=== PATIENT | male | born 1930 | race Caucasian/White ===

== ENCOUNTER 2017-11-21 11:37 | Emergency (ER) | payer MEDICARE, BC ==
--- NOTE | 2017-11-21 11:52 | UC ---
Laceration HPI - HPI Summary HPI Summary: 87 yo male presents s/p fall. He tells me that about 1 hour [employer] he was at the grocery store and a cart got away from him - he ran after it and fell forward landing on his hands and hitting his chin against the ground. He sustained abrasions to his b/l knees, wrists, and to chin. No LOC. He was ambulatory immediately after. He was able to drive himself here. Currently, is having pain in his left lower ribs and right wrist. Denies headache, dizziness, dental fracture, jaw pain, SOB, chest pain. - History Of Current Complaint Chief Complaint: Bella Stated Complaint: CHIN LACERATION Time Seen by Provider: 11/21/17 11:52 Hx Obtained From: Patient Onset/Duration: Sudden Onset Severity: Moderate Pain Intensity: 6 Pain Scale Used: 0-10 Numeric - Allergies/Home Medications Allergies/Adverse Reactions: Allergies Allergy/AdvReac Type Severity Reaction Status Date / Time aspirin Allergy See Comment Verified 11/21/17 11:45 MINOR HAYFEVER Allergy Congestion Uncoded 11/21/17 11:45 SOME ANIMALS Allergy Itching Uncoded 11/21/17 11:45 Home Medications: Home Medications Diltiazem TAB* [Cardizem 30 MG Tab*] 90 mg PO DAILY 11/21/17 [History Confirmed 11/21/17] Dronedarone TAB* [Multaq TAB*] 400 mg PO 11/21/17 [History] Metoprolol Tartrate TAB* [Lopressor TAB*] 50 mg PO BID 11/21/17 [History Confirmed 11/21/17] Mometasone Furoate [Nasonex] 50 mcg NA 11/21/17 [History] Olopatadine 0.1% OPHTH (NF) [Patanol 0.1% OPHTH (NF)] 0.1 % OP 11/21/17 [History ] PMH/Surg Hx/FS Hx/Imm Hx Endocrine History: Dyslipidemia Cardiovascular History: Cardiac Disease, Hypertension, Pacemaker/ICD - Surgical History Surgical History: Yes Surgery Procedure, Year, and Place: 1983 OPEN CHOLECYSTECTOMY, [facility] [place]. BILATERAL INGUINAL HERNIA REPAIR WITH RIGHT HYDROCELE REPAIR, [facility] [place]. 2009 PACEMAKER INSERTED, [place] - Family History Known Family History: Positive: None Family History: no malignant hyperthermia or anesthesia reaction - Social History Occupation: Retired Lives: With Family Alcohol Use: Rare Substance Use Type: None Smoking Status (MU): Former Smoker Review of Systems Constitutional: Negative Skin: Other - Abrasions Respiratory: Negative Cardiovascular: Negative Gastrointestinal: Negative Genitourinary: Negative Neurovascular: Negative Musculoskeletal: Other: - Right wrist pain. Left ribs pain Neurological: Negative Psychological: Negative All Other Systems Reviewed And Are Negative: Yes Physical Exam - Summary Physical Exam Summary: GENERAL: NAD. WDWN. No pain distress. SKIN: Superficial abrasion to chin, b/l volar wrists, and b/l knees. No lacerations. No discharge or active bleeding. HEENT: Head: AT/NC. No raccoon eyes or garrison's sign. Opening and closing mandible without pain. No TMJ pain Eyes: PERRLA. EOM intact. Conjunctiva clear without inflammation or discharge. Ears: Hearing grossly normal. TMs intact, no bulging, erythema, or edema. NECK: NTTP. FROM CHEST: CTAB. No r/r/w. No accessory muscle use. Breathing comfortably and in no distress. CV: Pulses intact. Brisk cap refill. MSK: FROM in B/L UEs and LEs with symmetric strength. NEURO: A&Ox3. 3 word recall, remote, recent memory, ability to follow 2-step directions, and attention intact. CN II XII grossly intact. [id number] are intact. Gait with normal base. Romberg: maintains balance, no pronator drift. Normal speech. No facial drooping. PSYCH: Age appropriate behavior. Triage Information Reviewed: Yes Vital Signs: Initial Vital Signs Temp 99.0 F 11/21/17 11:41 Pulse 79 11/21/17 11:41 Resp 18 11/21/17 11:41 BP 140/88 11/21/17 11:41 Pulse Ox 97 11/21/17 11:41 Laceration Course/Dx - Course/Dx Course Of Treatment: XR: IMPRESSION: NO FRACTURE OF THE WRIST IS NOTED.IMPRESSION: Suggestion of a fracture of the left eighth rib anteriorly. Suspect right wrist sprain in addition to left 8th rib fracture. Thumb spica splint provided. Advised to RICE and take tylenol for pain. Abrasions were cleansed and bandaged. F/u prn - Differential Dx - Laceration/Wound Provider Diagnoses: Left 8th rib fracture Discharge - Sign-Out/Discharge Documenting (check all that apply): Discharge/Admit/Transfer - Discharge Plan Condition: Stable Disposition: HOME Prescriptions: Lidocaine PATCH 5%* [Lidoderm 5% Patch*] 1 patch TRANSDERM DAILY PRN #[id number] patch PRN Reason: Pain Patient Education Materials: Rib Fracture (ED), Abrasion (ED) Referrals: Thanh Akers MD [Primary Care Provider] - Additional Instructions: If you develop a fever, shortness of breath, chest pain, new or worsening symptoms - please call your PCP or go to the ED. Your blood pressure was high at todays visit. Please see your primary provider within 4 weeks for recheck and re-evaluation. 1) Rest, Ice, and elevate your wrist as much as possible to reduce pain and swelling. 2) Take tylenol for pain and may use the lidocaine patches if needed - Billing Disposition and Condition Condition: STABLE Disposition: Home
[2017-11-21] MEDS ORDERED: Acetaminophen TAB* 325 MG PO ONE (13:12)
--- NOTE | 2017-11-21 13:22 | RAD ---
Indication: Left rib injury. 4 views of left ribs as well as dual energy PA views of the chest demonstrates suggestion of a fracture of the left anterior eighth rib anteriorly. No other fractures are noted. No pneumothorax is noted. IMPRESSION: Suggestion of a fracture of the left eighth rib anteriorly.
--- NOTE | 2017-11-21 13:22 | RAD ---
Indication: Right wrist pain 3 views of the wrist demonstrates no fracture. No other bone or joint abnormality is identified. IMPRESSION: NO FRACTURE OF THE WRIST IS NOTED.
[2017-11-21 13:47] VITALS: BP 148/87
== END 2017-11-21 13:45 | disposition home or self-care (01) ==
LOC: UCEAST 11:37
DX: S22.32XA Fracture of one rib, left side, initial encounter for closed fracture (principal); S80.212A Abrasion, left knee, initial encounter; S80.211A Abrasion, right knee, initial encounter; S60.812A Abrasion of left wrist, initial encounter; S60.811A Abrasion of right wrist, initial encounter; S00.81XA Abrasion of other part of head, initial encounter; I10 Essential (primary) hypertension; W18.39XA Other fall on same level, initial encounter; Y92.89 Other specified places as the place of occurrence of the external cause; Z88.6 Allergy status to analgesic agent; Z87.891 Personal history of nicotine dependence; Z91.09 Other allergy status, other than to drugs and biological substances; Z95.810 Presence of automatic (implantable) cardiac defibrillator
CPT/HCPCS: 99213; A9270-GY; G0463

== ENCOUNTER 2018-01-12 09:02 | Emergency (ER) | payer MEDICARE, BC ==
--- NOTE | 2018-01-12 09:26 | ED ---
GI/ HPI - HPI Summary HPI Summary: This patient is an 87 year old M presenting to [facility] with a chief complaint of hematochezia since 01/11/18. He endorses his stool was bright red 01/11/18 ( yesterday), and was bright red with older black blood this AM. 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 He notes 3-4 BMs yesterday, he endorses loose stool (which is baseline), with blood in all of it (which is not). He denies all pain, feels no sx. He endorses blood was drawn yesterday at [facility]. Rx Coumadin, PMHx pacemaker. - History of Current Complaint Chief Complaint: EDGIBleed Time Seen by Provider: 01/12/18 09:13 Stated Complaint: RECTAL BLEEDING Hx Obtained From: Patient Onset/Duration: Started Days Ago, Still Present Severity: Mild Current Severity: Mild Pain Intensity: 0 Location of Pain: None Associated Signs and Symptoms: Positive: Black Tarry Stool, Bright Red Blood w/ Stool, Diarrhea. Negative: Constipation, Fever, Abdominal Pain - Allergy/Home Medications Allergies/Adverse Reactions: Allergies Allergy/AdvReac Type Severity Reaction Status Date / Time aspirin Allergy See Comment Verified 01/12/18 09:32 MINOR HAYFEVER Allergy Congestion Uncoded 01/12/18 09:32 SOME ANIMALS Allergy Itching Uncoded 01/12/18 09:32 Home Medications: Home Medications Acetaminophen [Tylenol Extra Strength] 500 mg PO Q6HR PRN 01/12/18 [History Confirmed 01/12/18] Diltiazem TAB* [Cardizem 30 MG Tab*] 90 mg PO DAILY 01/12/18 [History Confirmed 01/12/18] Famotidine TAB* [Pepcid 20 MG TAB*] 20 mg PO BID 01/12/18 [History Confirmed ] Glucosam/Chond/Collagen/Hyalur [Glucosamine Chondroitin/C] 1 cap PO QAM [History Confirmed 01/12/18] Lisinopril 40 mg PO DAILY 01/12/18 [History Confirmed 01/12/18] Multivitamins/Minerals TAB* [Theragran/minerals TAB*] 1 tab PO QAM 01/12/18 [ History Confirmed 01/12/18] Triamcinolone 0.1% CREAM (NF) [Kenalog 0.1% Cream (NF)] 1 applic TOPICAL BID PRN 01/12/18 [History Confirmed 01/12/18] Warfarin TAB(*) [Coumadin TAB(*)] 4.5 mg PO SUTUWETH 01/12/18 [History Confirmed 01/12/18] PMH/Surg Hx/FS Hx/Imm Hx Endocrine/Hematology History: Denies: Hx Diabetes, Hx Systemic Lupus Erythematosus, Hx Thyroid Disease Cardiovascular History: Reports: Hx Atrial Fibrillation, Hx Hypertension - CONTROL WITH MEDICATION, Hx Pacemaker/ICD - 02/2010 - NO MRI Denies: Hx Congestive Heart Failure Comment Only: Other Cardiovascular Problems/Disorders - 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 KAT - PRIMARY Respiratory History: Denies: Hx Asthma, Hx Chronic Obstructive Pulmonary Disease (COPD), Hx Lung Cancer, Hx Pneumonia, Hx Pulmonary Embolism GI History: Denies: Hx Gall Bladder Disease, Hx Gastrointestinal Bleed, Hx Ulcer, Hx Urosepsis History: Reports: Other Problems/Disorders - ENLARGE PROSTATE Denies: Hx Dialysis, Hx Kidney Stones, Hx Renal Disease Musculoskeletal History: Reports: Hx Tendonitis - BILATERAL SHOULDERS, RIGHT GREATER THAN LEFT Denies: Hx Rheumatoid Arthritis Sensory History: Reports: Hx Contacts or Glasses - GLASSES Denies: Hx Deafness Opthamlomology History: Reports: Hx Contacts or Glasses - GLASSES EENT History: Denies: Hx Deafness Neurological History: Denies: Hx Dementia, Hx Migraine, Hx Seizures, Hx Transient Ischemic Attacks (TIA) Psychiatric History: Denies: Hx Anxiety, Hx Autism, Hx Depression, Hx Schizophrenia, Hx Bipolar Disorder - Cancer History Hx Chemotherapy: No - Surgical History Surgery Procedure, Year, and Place: 1983 OPEN CHOLECYSTECTOMY, [facility] [place]. BILATERAL INGUINAL HERNIA REPAIR WITH RIGHT HYDROCELE REPAIR, [facility] [place]. 2009 PACEMAKER INSERTED, [place] Hx Anesthesia Reactions: No Infectious Disease History: No Infectious Disease History: Denies: Hx Hepatitis, Hx Human Immunodeficiency Virus (HIV), Traveled Outside the [place] in Last 30 Days - Family History Known Family History: Negative: Blood Disorder Family History: no malignant hyperthermia or anesthesia reaction - Social History Occupation: Retired Lives: Assisted Living Alcohol Use: Rare Substance Use Type: Reports: None Smoking Status (MU): Former Smoker Review of Systems Negative: Fever Positive: Diarrhea, Other - hematochezia, bright red. Negative: Abdominal Pain Positive: no symptoms reported All Other Systems Reviewed And Are Negative: Yes Physical Exam - Summary Physical Exam Summary: Appearance: The patient is well-nourished in no acute distress and in no acute pain. Skin: The skin is warm and dry and skin color reflects adequate perfusion. HEENT: The head is normocephalic and atraumatic. The pupils are equal and reactive. The conjunctivae are clear and without drainage. Nares are patent and without drainage. Mouth reveals moist mucous membranes and the throat is without erythema and exudate. The external ears are intact. The ear canals are patent and without drainage. The tympanic membranes are intact. Neck: The neck is supple with full range of motion and non-tender. There are no carotid bruits. There is no neck vein distension. Respiratory: Chest is non-tender. Lungs are clear to auscultation and breath sounds are symmetrical and equal. Cardiovascular: Heart is regular rate and rhythm. There is no murmur or rub auscultated. There is no peripheral edema and pulses are symmetrical and equal. Abdomen: The abdomen is soft and non-tender. There are normal bowel sounds heard in all four quadrants and there is no organomegaly palpated. Musculoskeletal: There is no back tenderness noted. Extremities are non-tender with full range of motion. There is good capillary refill. There is no peripheral edema or calf tenderness elicited. Neurological: Patient is alert and oriented to person, place and time. The patient has symmetrical motor strength in all four extremities. Cranial nerves are grossly intact. Deep tendon reflexes are symmetrical and equal in all four extremities. Psychiatric: The patient has an appropriate affect and does not exhibit any anxiety or depression. Rectal: Kelp Gatherer Reji RN, external hemorrhoids, gross blood on finger, no obvious bleeding site. Triage Information Reviewed: Yes Vital Signs On Initial Exam: Initial Vitals Temp Pulse Resp BP Pulse Ox 97.5 F 89 16 146/92 97 01/12/18 09:06 01/12/18 09:06 01/12/18 09:06 01/12/18 09:06 01/12/18 09:06 Vital Signs Reviewed: Yes Diagnostics - Vital Signs Vital Signs Temp Pulse Resp BP Pulse Ox 01/12/18 09:06 97.5 F 89 16 146/92 97 - Laboratory Result Diagrams: 01/12/18 10:06 01/12/18 10:06 Lab Statement: Any lab studies that have been ordered have been reviewed, and results considered in the medical decision making process. Re-Evaluation - Re-Evaluation First Eval Re-Evaluation Time: 11:45 Change: Unchanged Comment: Pt informed of discharge, told to follow up with GI doctor. GIGU Course/Dx - Course Course Of Treatment: Mr. Daniels presents complaining of bright red blood per rectum. It's been going on for 2 days 3 episodes yesterday and at least one today. It's mixed with loose stool which is his norm. His vital signs are stable and it was noted that he has not dropped his hemoglobin. He has some external hemorrhoids that are not obviously bleeding. The glove is covered in some blood when I withdraw my finger. He did have one episode of loose stool with blood here in the emergency department. I spoke with Dr. Toure who felt that he was stable for discharge but needed close follow-up and would arrange so in his offices. The patient understands the need to return if he worsens or if things change. - Diagnoses Provider Diagnoses: Rectal bleeding - Physician Notifications Discussed Care Of Patient With: Omid Toure Time Discussed With Above Provider: 11:41 Instructed by Provider To: Other - recommends discharge, follow up this week. Discharge - Sign-Out/Discharge Documenting (check all that apply): Patient Departure - discharge - Discharge Plan Condition: Stable Disposition: HOME Patient Education Materials: Rectal Bleeding (ED) Referrals: Omid Toure MD [Medical Doctor] - 3 Days Additional Instructions: Follow up with Dr. Toure this week, call tomorrow to make appointment. Return to the emergency department for any new or worsening symptoms. - Billing Disposition and Condition Condition: STABLE Disposition: Home - Attestation Statements Document Initiated by Juan Franciscoibe: Yes Documenting Scribe: Tristan Oliva Provider For Whom Shahida is Documenting (Include Credential): Dr. Basim Knowles MD Scribe Attestation: Tristan Garcia scrcynthiaed for Dr. Basim Knowles MD on 01/12/18 at 1751. Scribe Documentation Reviewed: Yes Provider Attestation: The documentation as recorded by the Tristan edwards accurately reflects the service I personally performed and the decisions made by me, Dr. Basim Knowles MD
--- OUTSIDE RECORDS SUMMARY | 2018-01-12 09:46 | XMS REPORT ---
:1930 External Reference #:[id number] Author Organization [facility] Address [address] [place] [address] [place] [address] Phone [phone] Care Team Providers Name Role Phone Thanh Akers MD Primary Care Physician Unavailable Payers Type Date Identification Numbers Payment Provider Subscriber Medicare Primary Effective: Policy Number: Medicare Donn Daniels 1995 [id number] PayID: [id number] [address] [place] [address] Medigap Part B Effective: 2003 Policy Number: [facility] Donn Daniels [id number] Group Number: [id number] [address] PayID: [id number] [place] [address] Commercial Policy Number: [id number] [facility] Donn Daniels PayID: [id number] [place] [address] Problems Date Description Provider Status Onset: 09/05/2011 Allergic rhinitis due to pollen Viviana Hamilton, N.P. Active Onset: 02/09/2012 Open wound of finger with Viviana Hamilton, N.P. Active complication Onset: 09/27/2015 Paroxysmal atrial fibrillation Yael Ramsey M.D. Active Onset: 02/12/2015 Essential hypertension Yael Ramsey M.D. Active Onset: 09/04/2014 Benign essential hypertension Yael Ramsey M.D. Active Onset: 09/04/2014 Obstructive sleep apnea syndrome Yael Ramsey M.D. Active Onset: 07/21/2014 Dyssomnlazaro Bose MD Active Onset: 06/09/2014 Paroxysmal ventricular Yael Ramsey M.D. Active tachycardia Onset: 08/08/2013 Atrial fibrillation Yael Ramsey M.D. Active Onset: 08/08/2013 Cardiac pacemaker in situ Yael Ramsey M.D. Active Onset: 08/08/2013 Sinus node dysfunction Yael Ramsey M.D. Active Family History Date Family Member(s) Problem(s) Comments General Arrhythmia afib, pacer, lived into 90's : (1996) Father due to Unknown Causes : (age 70 Mother due to Asthma Years) Mother Asthma in 70's First Brother Atrial Fibrillation ablation First Sister Alive And Well Second Sister Alive And Well Social History Type Date Description Comments Lives With Cigarette Use Former Cigarette Smoker ETOH Use Occasionally consumes alcohol Smoking Patient is a former smoker Quit 06/29/1963 Recreational Drug Use Denies Drug Use Daily Caffeine Comsumes on average 1 cup of not every day once in a decaff coffee per day while Daily Caffeine consumes chocolate occasionally Exercise Type/Frequency Exercises regularly 3 times a week, 2 miles walking, leg and arm strength training Allergies, Adverse Reactions, Alerts Date Description Reaction Status Severity Comments 01/06/2007 Aspirin active bloody diarrhea 08/08/2013 Nuts active 06/16/2016 Propafenone tired, weak pulse, shortness active of breath Medications Medication Date Status Form Strength Qnty SIG Indications Ordering Provider Diltiazem HCL ER 05/05 Active Caps ER 90mg 90cap 1 by mouth I10 12HR s every day Vi Ramsey Multaq 05/13 Active Tablets 400mg 60tab take 1 tab I48.0 Yoshi . s by mouth [place], twice a day DO FACC Lopressor 01/12 Active Tablets 50mg 360ta /2 tablet bs by mouth [place], twice a day Vi Patanol 01/27 Active Solution 0.1% 1unit 1 GTT Both s Eyes qd prn FThais Allergies Vi Blankenship Nasonex 01/27 Active Suspension 50mcg/Act 1unit 2 Squirts s Intranasal F. bid prn Vi Blankenship Lisinopril Active Tablets 40mg 1 po qd Am Unknown / Tylenol Active 500mg 2 tablets Unknown / prn Diphenhydramine Active Capsules 25mg 100ca as needed Unknown ps Calcium 600 Active Tablets 600mg 1 by mouth Unknown every day Multivitamins Active Capsules 1 by mouth Unknown every day Triamcinolone Active Cream 0.1% as needed Oswald Acetonide MD Thanh Coumadin Active Tablets 3mg as directed by [facility] 4.5 mg 7 days week (will take for 2 more weeks then hold for dental and will start Eliquis) Zovirax Active Cream 5% prn Unknown Pepcid Active Tablets 20mg 1 by mouth Unknown twice daily Eye Formula Active 2 daily Unknown Vitamin Glucosamine Active 2 daily Unknown Chondroitin Complex Advanced Atorvastatin Active Tablets 10mg 1/2 tablets Unknown Calcium / by mouth every day Guaifenesin 11/23 Hx Liquid 100mg/5ML 473ml 5-10 S22.32xA Georgina milliliters Arnaldo, - by mouth N.P. 12/30 every hours as needed for cough Augmentin 07/24 Hx Tablets 875-125mg 10tab take 1 tab J01.90 Buddy s by mouth [place], - q12 hours M.D. 11/23 for 5 /2017 Eliquis 05/19 Hx Tablets 5mg 60tab take 1 tab I48.0 Yael s by mouth Braulio, - every 12 M.D. /2016 Propafenone HCL 04/03 Hx Tablets 225mg 180ta 1 by mouth I48.0 Qutaybeh /2015 bs twice a S. - day Maghaydah 05/13 , M.D. /2015 Polymyxin B 08/22 Hx Solution 13965-7.1 1ml 1 drop in 372.39 Georgina Sulfate/Trimetho /2014 Unit/ML-% eyes every Arnaldo, prim Sulfate - 3 hours x N.P. 09/03 Amlodipine 04/11 Hx Tablets 2.5mg 30tab take one I10 Viviana Besylate /2012 s tab po Percival-W - daily atson, 05/05 N.P. /2016 Sotalol HCL 10/08 Hx Tablets 80mg 90tab 1 tab by s mouth three Percival-W - times a day atson, 01/12 N.P. /2013 Zovirax 08/31 Hx Cream 5% 5gm apply to affected Percival-W - area as atson, 07/27 needed N.P. /2013 Nsaid-Name 08/23 Hx 500mg one bid prn Nurse Visit cc - 10/18 Lipitor 02/01 Hx Tablets 10mg 30tab 1 by mouth s every night Percival-W - at bedtime atson, 04/28 N.P. /2016 Flomax 03/29 Hx Caps ER 0.4mg 90cap 1 PO qd 24HR s Teodoro Blankenship, 07/27 M.D. /2013 Pepcid 01/27 Hx Tablets 20mg 90tab take 2 tab s po daily Percival-W - atson, 08/24 N.P. /2014 Selenium 01/27 Hx Tablets 200mcg 1 PO qd F. - Pattie, 01/26 M.D. /2008 Vitamin 01/06 Hx one qd F. - Pattie, 08/22 M.D. /2014 Calcium/Magnesiu 01/06 Hx Tablets one qd . - Pattie, 06/08 M.D. /2014 Glucosamine/Sav 01/06 Hx Capsules one qd Sunil dro F. Peter Blankenship, 01/26 M.D. /2008 Betapace 01/06 Hx Tablets 40mg 10tab 1 po qd s F. - Mapalmira, 10/08 M.D. /2012 Coumadin 01/06 Hx Tablets 3mg 90tab as directed s FThais Blankenship, 01/06 M.D. Lisinopril 01/06 Hx Tablets 2.5mg 90tab 2 PO qd s Teodoro - Pattie, 07/26 M.D. /2013 Lovenox 01/06 Hx Solution 80mg/0.8M 3unit SC bid L s Teodoro Garciar, 01/06 M.D. Coumadin 01/06 Hx Tablets 2mg 20tab as directed s ronaldo Green Mauser, 01/06 M.D. Coumadin 01/06 Hx Tablets 2mg 30tab 6mg s mariam leyva,s F. - at and then Mauser, 03/11 4.5mg other M.D. /2014 days as directed ( adjusted by [facility]) Glucosamine-Sav Hx Capsules 2 po qd Unknown droitin /0000 - 06/15 Triamcinolone Hx Cream 0.1% 30gm prn Unknown Acetonide / - 08/22 Zorivax Hx 5% topical as Unknown /0000 needed - 08/22 Famotidine Hx Tablets 20mg 1 tab po Unknown /0000 bid - 04/29 Tramadol HCL Hx Tablets 50mg 1 tab by Unknown /0000 mouth every - 6 hours as 03/11 Zovirax Hx Cream 5% use as Unknown /0000 directed - 02/09 Claritin-D 12 Hx Tablets ER 5-120mg 1 by mouth Unknown Hour /0000 12HR twice a day - 02/11 Prednisolone Hx eye gtts Unknown /0000 qid - 02/11 Erythromycin 00 Hx Ointment 5mg/GM daily Unknown /0000 - 10/17 Medications Administered in Office Medication Date Status Form Strength Qnty SIG Indications Ordering Provider Technetium TC Administered Injection Keith Martinez 99M [id number] Olga Hinojosa M.D., FACC, Per Unit Dose FASNC Up To 40 Millicuries Technetium TC Administered Injection Yael 99M 014 Olga Ramsey M.D. Per Unit Dose Up To 40 Millicuries Immunizations CPT Code Status Date Vaccine Lot # [id number] Given 05/31/2009 Influenza Virus Vaccine, Pandemic Formulation Vital Signs Date Vital Result Comment 12/31/2017 Weight 168.00 lb with shoes Heart Rate 74 /min BP Systolic Sitting 120 mmHg Lue reg cuff BP Diastolic Sitting 80 mmHg Lue reg cuff BP Systolic Standing 116 mmHg Lue reg cuff BP Diastolic Standing 70 mmHg Lue reg cuff Respiratory Rate 16 /min Ejection Fraction 55-60% date 01/19/14 ECHO 11/23/2017 Weight 168.00 lb Heart Rate 84 /min BP Systolic Sitting 108 mmHg BP Diastolic Sitting 74 mmHg Respiratory Rate 20 /min Body Temperature 97.7 F O2 % BldC Oximetry 97 % 07/24/2017 Weight 168.12 lb Heart Rate 71 /min BP Systolic 114 mmHg BP Diastolic 72 mmHg Respiratory Rate 20 /min Body Temperature 97.8 F O2 % BldC Oximetry 96 % 05/19/2017 Height 66 inches 5'6" Weight 168.00 lb with shoes Heart Rate 66 /min BP Systolic Sitting 114 mmHg Rue reg cuff BP Diastolic Sitting 74 mmHg Rue reg cuff BP Systolic Standing 110 mmHg Rue reg cuff BP Diastolic Standing 74 mmHg Rue reg cuff Respiratory Rate 14 /min BMI (Body Mass Index) 27.1 kg/m2 Ejection Fraction 55-60% 02/07/2014-echo 05/05/2017 Height 66 inches 5'6" Weight 169.00 lb Heart Rate 80 /min BP Systolic Sitting 122 mmHg Lue reg cuff BP Diastolic Sitting 84 mmHg Lue reg cuff BP Systolic Standing 120 mmHg Lue BP Diastolic Standing 80 mmHg Lue Respiratory Rate 14 /min BMI (Body Mass Index) 27.3 kg/m2 Ejection Fraction 55-60% 01/19/14 12/19/2016 Height 66 inches 5'6" Weight 166.00 lb with shoes Heart Rate 70 /min BP Systolic Sitting 120 mmHg Lue reg cuff BP Diastolic Sitting 72 mmHg Lue reg cuff BP Systolic Standing 118 mmHg Lue reg cuff BP Diastolic Standing 74 mmHg Lue reg cuff Respiratory Rate 17 /min BMI (Body Mass Index) 26.8 kg/m2 Ejection Fraction 55-60% 01/19/2014-echo 11/13/2016 Height 66 inches 5'6" Weight 166.00 lb with shoes Heart Rate 72 /min BP Systolic Sitting 110 mmHg Rue reg cuff BP Diastolic Sitting 70 mmHg Rue reg cuff BP Systolic Standing 112 mmHg Rue reg cuff BP Diastolic Standing 70 mmHg Rue reg cuff Respiratory Rate 17 /min BMI (Body Mass Index) 26.8 kg/m2 Ejection Fraction 55-60% date 01/19/14 ECHO 06/16/2016 Height 66 inches 5'6" Weight 170.00 lb with shoes Heart Rate 82 /min BP Systolic Sitting 136 mmHg Rue reg cuff BP Diastolic Sitting 86 mmHg Rue reg cuff BP Systolic Standing 138 mmHg Rue reg cuff BP Diastolic Standing 82 mmHg Rue reg cuff Respiratory Rate 16 /min BMI (Body Mass Index) 27.4 kg/m2 Ejection Fraction 55-60% 01/19/2014 05/20/2016 Height 66 inches 5'6" Weight 171.00 lb no shoes Heart Rate 78 /min BP Systolic Sitting 140 mmHg Lue reg cuff BP Diastolic Sitting 88 mmHg Lue reg cuff BP Systolic Standing 136 mmHg Lue reg cuff BP Diastolic Standing 80 mmHg Lue reg cuff Respiratory Rate 17 /min BMI (Body Mass Index) 27.6 kg/m2 05/13/2016 Height 66 inches 5'6" Weight 175.25 lb w/ shoes Heart Rate 90 /min irreg BP Systolic Sitting 102 mmHg Lue, reg cuff BP Diastolic Sitting 64 mmHg Lue, reg cuff BP Systolic Standing 110 mmHg Lue BP Diastolic Standing 70 mmHg Lue Respiratory Rate 16 /min BMI (Body Mass Index) 28.3 kg/m2 Ejection Fraction 55-60% as of 01/19/14 echo 05/08/2016 Weight 176.25 lb Heart Rate 80 /min BP Systolic Sitting 100 mmHg BP Diastolic Sitting 58 mmHg Respiratory Rate 24 /min Body Temperature 98.8 F O2 % BldC Oximetry 93 % 05/01/2016 Height 66 inches 5'6" Heart Rate 70 /min BP Systolic Sitting 120 mmHg Rue reg cuff BP Diastolic Sitting 90 mmHg Rue reg cuff BP Systolic Standing 130 mmHg Rue reg cuff BP Diastolic Standing 88 mmHg Rue reg cuff Respiratory Rate 16 /min 04/03/2016 Height 66 inches 5'6" Weight 175.00 lb with shoes Heart Rate 76 /min BP Systolic Sitting 122 mmHg Ra reg cuff BP Diastolic Sitting 88 mmHg Ra reg cuff BP Systolic Standing 122 mmHg Ra BP Diastolic Standing 84 mmHg Ra Respiratory Rate 16 /min BMI (Body Mass Index) 28.2 kg/m2 Ejection Fraction 55-60% 01/19/14 02/19/2016 Height 66 inches 5'6" Weight 175.00 lb with shoes Heart Rate 82 /min BP Systolic Sitting 130 mmHg LA reg cuff BP Diastolic Sitting 98 mmHg LA reg cuff BP Systolic Standing 132 mmHg LA reg cuff BP Diastolic Standing 96 mmHg LA reg cuff Respiratory Rate 17 /min BMI (Body Mass Index) 28.2 kg/m2 Ejection Fraction 55-60% 01/19/14 09/27/2015 Height 66 inches 5'6" Weight 171.00 lb no shoes Heart Rate 72 /min BP Systolic Sitting 134 mmHg Ra reg cuff BP Diastolic Sitting 92 mmHg Ra reg cuff BP Systolic Standing 134 mmHg Ra BP Diastolic Standing 94 mmHg Ra Respiratory Rate 16 /min BMI (Body Mass Index) 27.6 kg/m2 Ejection Fraction 55-60% 01/19/14 09/27/2015 Weight 173.50 lb Heart Rate 70 /min BP Systolic Sitting 126 mmHg BP Diastolic Sitting 60 mmHg Respiratory Rate 18 /min Body Temperature 98.2 F O2 % BldC Oximetry 94 % 07/09/2015 Height 67 inches 5'7" Weight 173.00 lb Pain Level 0 BMI (Body Mass Index) 27.1 kg/m2 06/25/2015 Height 67 inches 5'7" Weight 173.00 lb Body Temperature 96.0 F BMI (Body Mass Index) 27.1 kg/m2 06/15/2015 Height 67 inches 5'7" Weight 173.00 lb Heart Rate 77 /min BP Systolic Sitting 130 mmHg BP Diastolic Sitting 74 mmHg Pain Level 1 BMI (Body Mass Index) 27.1 kg/m2 03/12/2015 Height 67 inches 5'7" Weight 173.00 lb with shoes Heart Rate 72 /min BP Systolic Sitting 140 mmHg LA, reg cuff BP Diastolic Sitting 88 mmHg LA, reg cuff BP Systolic Standing 140 mmHg LA BP Diastolic Standing 86 mmHg LA Respiratory Rate 14 /min BMI (Body Mass Index) 27.1 kg/m2 Ejection Fraction 55-60% 01/19/2014 02/12/2015 Height 67 inches 5'7" Weight 177.00 lb with shoes Heart Rate 74 /min BP Systolic Sitting 130 mmHg Ra reg cuff BP Diastolic Sitting 80 mmHg Ra reg cuff BP Systolic Standing 138 mmHg Ra reg cuff BP Diastolic Standing 74 mmHg Ra reg cuff Respiratory Rate 17 /min BMI (Body Mass Index) 27.7 kg/m2 10/18/2014 Height 67 inches 5'7" Weight 172.00 lb with shoes Heart Rate 70 /min BP Systolic Sitting 130 mmHg LA, reg cuff BP Diastolic Sitting 82 mmHg LA, reg cuff BP Systolic Standing 128 mmHg LA BP Diastolic Standing 86 mmHg LA Respiratory Rate 14 /min BMI (Body Mass Index) 26.9 kg/m2 09/19/2014 Height 67 inches 5'7" Weight 170.00 lb Heart Rate 70 /min BP Systolic Sitting 120 mmHg BP Diastolic Sitting 80 mmHg O2 % BldC Oximetry 98 % BMI (Body Mass Index) 26.6 kg/m2 Neck Circumference in inches 16 09/18/2014 Heart Rate 73 /min BP Systolic 138 mmHg BP Diastolic 82 mmHg Respiratory Rate 20 /min Body Temperature 97.5 F O2 % BldC Oximetry 98 % 09/04/2014 Height 67 inches 5'7" Weight 171.00 lb Heart Rate 70 /min BP Systolic Sitting 138 mmHg right arm, reg cuff BP Diastolic Sitting 82 mmHg right arm, reg cuff BP Systolic Standing 126 mmHg right arm, reg cuff BP Diastolic Standing 80 mmHg right arm, reg cuff BMI (Body Mass Index) 26.8 kg/m2 08/22/2014 Weight 175.00 lb Heart Rate 75 /min BP Systolic 150 mmHg BP Diastolic 84 mmHg Respiratory Rate 18 /min Body Temperature 97.3 F 07/21/2014 Height 67 inches 5'7" Weight 173.12 lb Heart Rate 74 /min BP Systolic Sitting 132 mmHg BP Diastolic Sitting 74 mmHg Respiratory Rate 18 /min Body Temperature 97.3 F O2 % BldC Oximetry 98 % BMI (Body Mass Index) 27.1 kg/m2 Neck Circumference in inches 16 06/09/2014 Height 67.25 inches 5'7.25" Weight 171.50 lb with shoes Heart Rate 64 /min BP Systolic Sitting 110 mmHg La reg cuff BP Diastolic Sitting 80 mmHg La reg cuff BP Systolic Standing 116 mmHg LA reg cuff BP Diastolic Standing 80 mmHg LA reg cuff Respiratory Rate 16 /min BMI (Body Mass Index) 26.7 kg/m2 02/08/2014 Height 67.25 inches 5'7.25" Weight 174.00 lb Heart Rate 68 /min BP Systolic Sitting 128 mmHg LA reg cuff BP Diastolic Sitting 84 mmHg LA reg cuff BP Systolic Standing 126 mmHg LA BP Diastolic Standing 84 mmHg LA Respiratory Rate 16 /min BMI (Body Mass Index) 27.0 kg/m2 01/27/2014 Height 67.25 inches 5'7.25" Weight 172.00 lb no shoes Heart Rate 80 /min BP Systolic Sitting 126 mmHg LA, reg cuff BP Diastolic Sitting 88 mmHg LA, reg cuff BP Systolic Standing 118 mmHg LA BP Diastolic Standing 86 mmHg LA Respiratory Rate 16 /min BMI (Body Mass Index) 26.7 kg/m2 08/08/2013 Height 67.5 inches 5'7.50" Weight 174.00 lb no shoes Heart Rate 70 /min BP Systolic Sitting 128 mmHg LA, reg cuff BP Diastolic Sitting 82 mmHg LA, reg cuff BP Systolic Standing 120 mmHg BP Diastolic Standing 78 mmHg Respiratory Rate 14 /min BMI (Body Mass Index) 26.8 kg/m2 02/09/2012 Heart Rate 70 /min Paced BP Systolic 160 mmHg BP Diastolic 110 mmHg Respiratory Rate 20 /min Body Temperature 97.0 F 09/05/2011 Heart Rate 72 /min BP Systolic 134 mmHg BP Diastolic 94 mmHg Respiratory Rate 16 /min Body Temperature 98.0 F 01/31/2010 Height 68 inches 5'8" Weight 177.00 lb Heart Rate 55 /min BP Systolic Sitting 130 mmHg L BP Diastolic Sitting 70 mmHg L BMI (Body Mass Index) 26.9 kg/m2 10/18/2009 Height 68 inches 5'8" Weight 174.25 lb Heart Rate 64 /min BP Systolic Sitting 122 mmHg BP Diastolic Sitting 70 mmHg BMI (Body Mass Index) 26.5 kg/m2 01/26/2009 Height 68 inches 5'8" Weight 172.00 lb Heart Rate 57 /min BP Systolic Sitting 130 mmHg L BP Diastolic Sitting 72 mmHg L BMI (Body Mass Index) 26.1 kg/m2 01/27/2008 Height 68 inches 5'8" Weight 172.00 lb Heart Rate 57 /min BP Systolic Sitting 130 mmHg BP Diastolic Sitting 72 mmHg Respiratory Rate 16 /min BMI (Body Mass Index) 26.1 kg/m2 06/02/2007 Height 68 inches 5'8" Weight 171.00 lb Heart Rate 61 /min BP Systolic Sitting 130 mmHg BP Diastolic Sitting 80 mmHg Respiratory Rate 14 /min BMI (Body Mass Index) 26.0 kg/m2 03/29/2007 Height 68 inches 5'8" Weight 170.00 lb Heart Rate 50 /min BP Systolic Sitting 122 mmHg BP Diastolic Sitting 70 mmHg Respiratory Rate 16 /min BMI (Body Mass Index) 25.8 kg/m2 01/27/2007 Height 68 inches 5'8" Weight 174.50 lb Heart Rate 57 /min BP Systolic Sitting 140 mmHg BP Diastolic Sitting 80 mmHg BP Systolic Standing 130 mmHg BP Diastolic Standing 76 mmHg BMI (Body Mass Index) 26.5 kg/m2 01/06/2007 Height 68 inches 5'8" Weight 172.00 lb Heart Rate 48 /min BP Systolic Sitting 160 mmHg L 150/78 R BP Diastolic Sitting 70 mmHg L 150/78 R BP Systolic Standing 158 mmHg R BP Diastolic Standing 90 mmHg R BMI (Body Mass Index) 26.1 kg/m2 Results Test Date Test Result H/L Range Note Basic Metabolic Panel 06/29/2017 Sodium 138 mmol/L 133-145 1 Potassium 4.1 mmol/L 3.5-5.0 1 Chloride 103 mmol/L 101-111 1 Co2 Carbon Dioxide 29 mmol/L 22-32 1 Anion Gap 6 mmol/L 2-11 1 Glucose 99 mg/dL 70-100 1 Blood Urea Nitrogen 11 mg/dL 6-24 1 Creatinine 1.01 mg/dL 0.67-1.17 1 BUN/Creatinine Ratio 10.9 8-20 1 Calcium 8.8 mg/dL 8.6-10.3 1 Egfr Non- 70.0 >60 1 Egfr 90.1 >60 1, 2 Laboratory test finding 06/29/2017 Magnesium 2.0 mg/dL 1.9-2.7 1, 3 Laboratory test finding 02/19/2016 TSH (Thyroid Stim 1.55 mcIU/mL 0.34- 5.60 Horm) CBC Auto Diff 02/19/2016 White Blood Count 6.8 10^3/uL 3.5-10.8 Red Blood Count 5.43 10^6/uL High 4.0-5.4 Hemoglobin 16.7 g/dL 14.0-18.0 Hematocrit 50 % 42-52 Mean Corpuscular Volume 93 fL 80-94 Mean Corpuscular Hemoglobin 31 pg 27-31 Mean Corpuscular HGB Conc 33 g/dL 31-36 Red Cell Distribution Width 14 % 10.5-15 Platelet Count 231 10^3/uL 150-450 Mean Platelet Volume 9 um3 7.4-10.4 Abs Neutrophils 4.0 10^3/uL 1.5-7.7 Abs Lymphocytes 1.4 10^3/uL 1.0-4.8 Abs Monocytes 1.0 10^3/uL High 0-0.8 Abs Eosinophils 0.3 10^3/uL 0-0.6 Abs Basophils 0.1 10^3/uL 0-0.2 Abs Nucleated RBC 0.01 10^3/uL Granulocyte % 58.8 % 38-83 Lymphocyte % 21.2 % Low 25-47 Monocyte % 14.0 % High 1-9 Eosinophil % 5.0 % 0-6 Basophil % 1.0 % 0-2 Nucleated Red Blood Cells % 0.1 Laboratory test finding 02/19/2016 Magnesium 2.1 mg/dL 1.9-2.7 Basic Metabolic Panel 02/19/2016 Sodium 139 mmol/L 133-145 Potassium 4.0 mmol/L 3.5-5.0 Chloride 103 mmol/L 101-111 Co2 Carbon Dioxide 30 mmol/L 22-32 Anion Gap 6 mmol/L 2-11 Glucose 92 mg/dL 70-100 Blood Urea Nitrogen 14 mg/dL 6-24 Creatinine 1.03 mg/dL 0.67-1.17 BUN/Creatinine Ratio 13.6 8-20 Calcium 9.3 mg/dL 8.6-10.3 Egfr Non- 68.8 >60 Egfr 88.5 >60 4 Laboratory test finding 02/19/2015 Magnesium 2.0 mg/dL 1.9-2.7 TSH (Thyroid Stim Horm) 1.88 ?IU/mL 0.34-5.60 Free T4 (Free Thyroxine) 0.96 ng/mL 0.61-1.12 Basic Metabolic Panel 02/19/2015 Sodium 137 mmol/L 133-145 Potassium 4.3 mmol/L 3.5-5.0 Chloride 101 mmol/L 101-111 Co2 Carbon Dioxide 30 mmol/L 22-32 Anion Gap 6 mmol/L 2-11 Glucose 121 mg/dL High 70-100 Blood Urea Nitrogen 13 mg/dL 6-24 Creatinine 1.12 mg/dL 0.67-1.17 BUN/Creatinine Ratio 11.6 8-20 Calcium 9.3 mg/dL 8.6-10.3 Egfr Non- 62.6 >60 Egfr 80.5 >60 5 Laboratory test finding 10/11/2012 Phosphorus 2.9 mg/dL 2.4-4.7 Magnesium 2.2 mg/dL 1.7-2.6 Basic Metabolic Panel 10/11/2012 Sodium 136 mmol/L 133-145 Potassium 4.5 mmol/L 3.5-5.0 Chloride 101 mmol/L 101-111 Co2 Carbon Dioxide 31.0 mmol/L 22-32 Anion Gap 4.0 mmol/L 2-11 Glucose 85 mg/dL 70-100 Blood Urea Nitrogen 12 mg/dL 6-24 Creatinine 1.10 mg/dL 0.50-1.40 BUN/Creatinine Ratio 10.9 8-20 Calcium 9.6 mg/dL 8.1-9.9 Egfr Non- 64.2 >60 Egfr 82.6 >60 6 Laboratory test finding 07/19/2012 D Dimer Quantitative < 200 ng/mL Less Than 230 7 Basic Metabolic Panel 07/19/2012 Sodium 140 mmol/L 133-145 Potassium 4.0 mmol/L 3.5-5.0 Chloride 103 mmol/L 101-111 Co2 Carbon Dioxide 30.0 mmol/L 22-32 Anion Gap 7.0 mmol/L 2-11 Glucose 64 mg/dL Low 70-100 Blood Urea Nitrogen 9 mg/dL 6-24 Creatinine 1.00 mg/dL 0.50-1.40 BUN/Creatinine Ratio 9.0 8-20 Calcium 8.9 mg/dL 8.1-9.9 Egfr Non- 71.7 >60 Egfr 92.2 >60 8 Laboratory test finding 07/19/2012 TSH (Thyroid Stimulating 1.33 miu/mL 0.34-5.60 Horm) Laboratory test finding 07/19/2012 B Type Natriuretic 59.0 pg/mL 0-100 Peptide CBC With Electronic Diff 12/10/2009 White Blood Count 5.6 CUMM 4.8-10.8 Red Cell Count 5.14 CUMM 4.6-6.2 Hemoglobin 16.0 g/dL 14.0-18.0 Hematocrit 48 % 42-52 Mean Corpuscular Volume 93 um3 80-94 Mean Corpuscular Hemoglob 31 pg 27-31 Mean Corpuscular HGB Cone 34 g/dL 32-36 Redcell Distribution WDTH 14 % 10.5-15 Platelet Count 212 CUMM 150-450 Mean Platelet Volume 8.6 um3 7.4-10.4 Gran % 53.2 % 38-83 Lymph % 25.8 % 25-47 Mononuclear % 14.3 % High 1-9 Eosinophil % 6.1 % High 0-6 Basophil % 0.6 % 0-2 Abs Lymphs 1.5 1.0-4.8 Abs Mononuclear 0.8 0-0.8 Absolute Neutrophil Count 3.0 1.5-7.7 Abs Eosinophils 0.3 0-0.6 Abs Basophils 0 0-0.2 Comp Metabolic Panel 12/10/2009 Sodium 137 mmol/L 135-145 Potassium 4.1 mmol/L 3.5-5.0 Chloride 104 mmol/L 101-111 Co2 (Carbon Dioxide) 25.0 mmol/L 22-32 Anion Gap 8.0 mmol/L 2-11 9 Glucose 101 mg/dL High 70-100 10 BUN 10 mg/dL 6-24 Creatinine 1.10 mg/dL 0.50-1.40 One Over Creatinine 0.90 BUN/Creatinine Ratio 9.1 8-20 Calcium 9.3 mg/dL 8.1-9.9 11 Total Protein 7.4 GM/DL 6.2-8.1 Albumin 4.1 GM/DL 3.2-5.2 Globulin 3.3 GM/DL 2-4 Albumin/Globulin Ratio 1.2 1-3 Bilirubin Total 1.8 mg/dL High 0.4-1.5 12 Alkaline Phosphatase 40 U/L 39-117 Alt (SGPT) 21 U/L 17-63 Ast (Sgot) 27 U/L 12-42 eGFR Non- 68.8 > 60 eGFR 83.3 > 60 13 Lipid Profile (Trig/Chol/HDL) 12/10/2009 Triglyceride 48 mg/dL 40-200 Cholesterol 117 mg/dL Less Than 200 14 High Density Lipoprotein 39 mg/dL Low 40-60 15 Cholesterol/HDL Ratio 3.00 AVERAGE 1-4.97 Low Density Lipoprotein 68 mg/dL Less Than 100 16 Laboratory test finding 12/10/2009 CPK (Creatine Kinase) 88 U/L 0-200 TSH 1.52 MIU/ML 0.34-5.60 1 [id number] 2 Because ethnic data is not always readily available, this report includes an eGFR for both -Americans and non- Americans. The National Kidney Disease Education Program (NKDEP) does not endorse the use of the MDRD equation for patients that are not between the ages of 18 and 70, are , have extremes of body size, muscle mass, or nutritional status, or are non- or non-. According to the National Kidney Foundation, irrespective of diagnosis, the stage of the disease is based on the level of kidney function: Stage Description GFR(mL/min/1.73 m(2)) 1 Kidney damage with normal or decreased GFR 90 2 Kidney damage with mild decrease in GFR 60-89 3 Moderate decrease in GFR 30-59 4 Severe decrease in GFR 15-29 5 Kidney failure <15 (or dialysis) 3 [id number] 4 Because ethnic data is not always readily available, this report includes an eGFR for both -Americans and non- Americans. The National Kidney Disease Education Program (NKDEP) does not endorse the use of the MDRD equation for patients that are not between the ages of 18 and 70, are , have extremes of body size, muscle mass, or nutritional status, or are non- or non-. According to the National Kidney Foundation, irrespective of diagnosis, the stage of the disease is based on the level of kidney function: Stage Description GFR(mL/min/1.73 m(2)) 1 Kidney damage with normal or decreased GFR 90 2 Kidney damage with mild decrease in GFR 60-89 3 Moderate decrease in GFR 30-59 4 Severe decrease in GFR 15-29 5 Kidney failure <15 (or dialysis) 5 Because ethnic data is not always readily available, this report includes an eGFR for both -Americans and non- Americans. The National Kidney Disease Education Program (NKDEP) does not endorse the use of the MDRD equation for patients that are not between the ages of 18 and 70, are , have extremes of body size, muscle mass, or nutritional status, or are non- or non-. According to the National [employer] Foundation, irrespective of diagnosis, the stage of the disease is based on the level of kidney function: Stage Description GFR(mL/min/1.73 m(2)) 1 Kidney damage with normal or decreased GFR 90 2 Kidney damage with mild decrease in GFR 60-89 3 Moderate decrease in GFR 30-59 4 Severe decrease in GFR 15-29 5 Kidney failure <15 (or dialysis) 6 Because ethnic data is not always readily available, this report includes an eGFR for both -Americans and non- Americans. The National Kidney Disease Education Program (NKDEP) does not endorse the use of the MDRD equation for patients that are not between the ages of 18 and 70, are , have extremes of body size, muscle mass, or nutritional status, or are non- or non-. According to the National Kidney Foundation, irrespective of diagnosis, the stage of the disease is based on the level of kidney function: Stage Description GFR(mL/min/1.73 m(2)) 1 Kidney damage with normal or decreased GFR 90 2 Kidney damage with mild decrease in GFR 60-89 3 Moderate decrease in GFR 30-59 4 Severe decrease in GFR 15-29 5 Kidney failure <15 (or dialysis) 7 Please note: The following may produce a false positive D Dimer test: - Rheumatoid factor greater than 60 IU/ml - Plasma hemoglobin greater than 0.05 gm/dl - Bilirubin greater than 50 mg/dl - Lipids greater than 1000 mg/dl - FDP greater than 20 ug/ml 8 Because ethnic data is not always readily available, this report includes an eGFR for both -Americans and non- Americans. The National Kidney Disease Education Program (NKDEP) does not endorse the use of the MDRD equation for patients that are not between the ages of 18 and 70, are , have extremes of body size, muscle mass, or nutritional status, or are non- or non-. According to the National Kidney Foundation, irrespective of diagnosis, the stage of the disease is based on the level of kidney function: Stage Description GFR(mL/min/1.73 m(2)) 1 Kidney damage with normal or decreased GFR 90 2 Kidney damage with mild decrease in GFR 60-89 3 Moderate decrease in GFR 30-59 4 Severe decrease in GFR 15-29 5 Kidney failure <15 (or dialysis) 9 Anion gap measurement may be of limited value in the presence of any alkalosis, especially in a combined acid base disorder. . 10 Note change in reference range as of 01/13/08. The change was based on recommendations from the [place] [employer]. 11 Please note change in reference range effective 07 . 12 A metabolite of Naproxen, O-desmethylnaproxen, has been shown to interfere with the Jendrassik-Chasity method for measuring total bilirubin. Samples from patients who have taken Naproxen have shown spurious elevation in total bilirubin levels. 13 Because ethnic data is not always readily available, this report includes an eGFR for both -Americans and non- Americans. The National Kidney Disease Education Program (NKDEP) does not endorse the use of the MDRD equation for patients that are not between the ages of 18 and 70, are , have extremes of body size, muscle mass, or nutritional status, or are non- or non-. According to the National Kidney Foundation, irrespective of diagnosis, the stage of the disease is based on the level of kidney function: Stage Description GFR(mL/min/1.73 m(2)) 1 Kidney damage with normal or decreased GFR 90 2 Kidney damage with mild decrease in GFR 60-89 3 Moderate decrease in GFR 30-59 4 Severe decrease in GFR 15-29 5 Kidney failure <15 (or dialysis) 14 CHOLESTEROL INTERPRETATION: Desirable: Less than 200 MG/DL Borderline-High Risk: 200-239 MG/DL High-Risk: 240 MG/DL and over 15 HDL INTERPRETATION: Undesirable: High Risk: Less than 40 MG/DL Desirable: Low Risk: Greater than 60 MG/DL 16 LDL INTERPRETATION: Low Risk Optimal Level: LDL Less than 100 MG/DL Near or Above Optimal: LDL 100-129 MG/DL Borderline High Risk: LDL 130-159 MG/DL High Risk: LDL 160-189 MG/DL Very High Risk: LDL Greater than 189 MG/DL Procedures Date CPT Code Description Status 12/31/2017 95280 Pace Maker Eval W/Iterative Adjment Dual Lead Completed 12/31/2017 62005 EKG Tracing & Interpretation Completed 05/05/2017 35465 EKG Tracing & Interpretation Completed 04/28/2017 59482 Pace Maker Eval W/Iterative Adjment Dual Lead Completed 04/28/2017 10961 Pace Maker Eval W/Iterative Adjment Dual Lead Completed 12/19/2016 73031 EKG Tracing & Interpretation Completed 12/19/2016 35699 EKG Tracing & Interpretation Completed 12/11/2016 76904 Interrogation Device Eval In Person W/ Completed Analysis,Single,Dual,Mul 12/11/2016 96665 Interrogation Device Eval In Person W/ Completed Analysis,Single,Dual,Mul 11/13/2016 99563 Pace Maker Eval W/Iterative Adjment Dual Lead Completed 08/12/2016 34881 Interrogation Device Eval In Person W/ Completed Analysis,Single,Dual,Mul 06/16/2016 39215 EKG Tracing & Interpretation Completed 05/20/2016 53842 EKG Tracing & Interpretation Completed 05/20/2016 68143 EKG Tracing & Interpretation Completed 05/14/2016 33351 Icd Eval Sing,Dual,Multi Lead Remote Recpt Transm Tech Completed Rev Tech S 05/14/2016 19272 Pacemaker Check Remote Up To 90Days Completed Single,Dual,Multiple Lead 05/13/2016 94726 EKG Tracing & Interpretation Completed 05/08/2016 67500 Pace Maker Eval W/Iterative Adjment Dual Lead Completed 05/01/2016 15780 EKG Tracing & Interpretation Completed 05/01/2016 21559 EKG Tracing & Interpretation Completed 04/03/2016 68893 EKG Tracing & Interpretation Completed 03/14/2016 49425 Pace Maker Eval W/Iterative Adjment Dual Lead Completed 02/19/2016 17998 EKG Tracing & Interpretation Completed 01/29/2016 89179 Icd Eval Sing,Dual,Multi Lead Remote Recpt Transm Tech Completed Rev Tech S 01/29/2016 81934 Pacemaker Check Remote Up To 90Days Completed Single,Dual,Multiple Lead 11/15/2015 55518 Interrogation Device Eval In Person W/DR Completed Analysis,Single,Dual,Mul 09/13/2015 71877 Pace Maker Eval W/Iterative Adjment Dual Lead Completed 09/12/2015 98561 Icd Eval Sing,Dual,Multi Lead Remote Recpt Transm Tech Completed Rev Tech S 09/12/2015 22541 Pacemaker Check Remote Up To 90Days Completed Single,Dual,Multiple Lead 05/29/2015 04018 Icd Eval Sing,Dual,Multi Lead Remote Recpt Transm Tech Completed Rev Tech S 05/29/2015 58575 Pacemaker Check Remote Up To 90Days Completed Single,Dual,Multiple Lead 03/14/2015 64585 Interrogation Device Eval In Person W/DR Completed Analysis,Single,Dual,Mul 02/12/2015 29611 EKG Tracing & Interpretation Completed 01/26/2015 60414 Icd Eval Sing,Dual,Multi Lead Remote Recpt Transm Tech Completed Rev Tech S 01/26/2015 38137 Pacemaker Check Remote Up To 90Days Completed Single,Dual,Multiple Lead 01/17/2015 62082 Icd Eval Sing,Dual,Multi Lead Remote Recpt Transm Tech Completed Rev Tech S 01/17/2015 21190 Pacemaker Check Remote Up To 90Days Completed Single,Dual,Multiple Lead 12/14/2014 08715 Interrogation Device Eval In Person W/DR Completed Analysis,Single,Dual,Mul 10/19/2014 66879 Pacemaker Check Remote Up To 90Days Completed Single,Dual,Multiple Lead 10/19/2014 68655 Icd Eval Sing,Dual,Multi Lead Remote Recpt Transm Tech Completed Rev Tech S 09/13/2014 40814 Pace Maker Eval W/Iterative Adjment Dual Lead Completed 08/22/2014 52238 Polysomnography Sleep Staging 4+ Parameters Completed 08/15/2014 17647 Icd Eval Sing,Dual,Multi Lead Remote Recpt Transm Tech Completed Rev Tech S 08/15/2014 35678 Pacemaker Check Remote Up To 90Days Completed Single,Dual,Multiple Lead 08/01/2014 14712 Pace Maker Eval W/Iterative Adjment Dual Lead Completed 07/12/2014 02711 Icd Eval Sing,Dual,Multi Lead Remote Recpt Transm Tech Completed Rev Tech S 07/12/2014 33151 Pacemaker Check Remote Up To 90Days Completed Single,Dual,Multiple Lead 06/19/2014 47502 Icd Eval Sing,Dual,Multi Lead Remote Recpt Transm Tech Completed Rev Tech S 06/19/2014 80818 Pacemaker Check Remote Up To 90Days Completed Single,Dual,Multiple Lead 06/09/2014 17193 EKG Tracing & Interpretation Completed 06/08/2014 24333 Pacemaker Check Remote Up To 90Days Completed Single,Dual,Multiple Lead 06/08/2014 40288 Icd Eval Sing,Dual,Multi Lead Remote Recpt Transm Tech Completed Rev Tech S 05/16/2014 18257 Icd Eval Sing,Dual,Multi Lead Remote Recpt Transm Tech Completed Rev Tech S 05/16/2014 12473 Pacemaker Check Remote Up To 90Days Completed Single,Dual,Multiple Lead 04/19/2014 80753 Interrogation Device Eval In Person W/DR Completed Analysis,Single,Dual,Mul 03/27/2014 56284 Icd Eval Sing,Dual,Multi Lead Remote Recpt Transm Tech Completed Rev Tech S 03/27/2014 61254 Pacemaker Check Remote Up To 90Days Completed Single,Dual,Multiple Lead 02/07/2014 34125 Stress Test Completed 02/07/2014 45594 Myocardial Perfusion Imaging Tomographic (Spect) Completed Multiple Studies 02/07/2014 70395 Myocardial Perfusion Imaging Tomographic (Spect) Completed Multiple Studies 01/26/2014 22560 Pace Maker Eval W/Iterative Adjment Dual Lead Completed 01/19/2014 25857 ECHO Transthoracic, Real-Time 2D With Doppler And Color Completed Flow 01/12/2014 27394 Pacemaker Check Remote Up To 90Days Completed Single,Dual,Multiple Lead 01/12/2014 83096 Icd Eval Sing,Dual,Multi Lead Remote Recpt Transm Tech Completed Rev Tech S 08/08/2013 14912 EKG Tracing & Interpretation Completed 08/04/2013 74736 Pace Maker Eval W/Iterative Adjment Dual Lead Completed 02/23/2013 76544 Icd Eval Sing,Dual,Multi Lead Remote Recpt Transm Tech Completed Rev Tech S 02/23/2013 32036 Pacemaker Check Remote Up To 90Days Completed Single,Dual,Multiple Lead 02/03/2013 14271 EKG Tracing & Interpretation Completed 02/01/2013 27991 Pace Maker Eval W/Iterative Adjment Dual Lead Completed 10/12/2012 46697 EKG Tracing & Interpretation Completed 10/06/2012 54187 Icd Eval Sing,Dual,Multi Lead Remote Recpt Transm Tech Completed Rev Tech S 10/06/2012 05490 Pacemaker Check Remote Up To 90Days Completed Single,Dual,Multiple Lead 10/06/2012 68052 EKG Tracing & Interpretation Completed 09/02/2012 96777 Pacemaker Check Remote Up To 90Days Completed Single,Dual,Multiple Lead 09/02/2012 40960 Icd Eval Sing,Dual,Multi Lead Remote Recpt Transm Tech Completed Rev Tech S 08/31/2012 15980 Icd Eval Sing,Dual,Multi Lead Remote Recpt Transm Tech Completed Rev Tech S 08/31/2012 07956 Pacemaker Check Remote Up To 90Days Completed Single,Dual,Multiple Lead 07/14/2012 70657 Pace Maker Eval W/Iterative Adjment Dual Lead Completed 07/14/2012 51665 EKG Tracing & Interpretation Completed 01/31/2010 00963 EKG Tracing & Interpretation Completed 10/18/2009 16691 Holter Monitor Review (24 hr)dr review & interp only Completed 10/18/2009 26309 EKG Tracing & Interpretation Completed 09/21/2009 35463 Holter Monitor Completed 08/23/2009 96406 EKG Tracing & Interpretation Completed 01/26/2009 60712 EKG Tracing & Interpretation Completed 01/27/2008 93027 EKG Tracing & Interpretation Completed 06/02/2007 62985 EKG Tracing & Interpretation Completed 03/29/2007 72570 EKG Tracing & Interpretation Completed 03/29/2007 26853 EKG Tracing & Interpretation Completed 01/27/2007 85410 EKG Tracing & Interpretation Completed 01/06/2007 76901 EKG Tracing & Interpretation Completed 01/06/2007 53700 EKG Tracing & Interpretation Completed 01/03/2007 83370 Color Flow Doppler/Interp & Reprt Completed 01/03/2007 07139 Pulse Wave/Continuous-Interp.RPT Completed 01/03/2007 14202 Pulse Wave/Continuous-Interp.RPT Completed 01/03/2007 40161 Echocardiogram Completed 01/03/2007 09592 Treadmill Interp/Report Only Completed 01/03/2007 84349 Treadmill Interp/Report Only Completed 01/03/2007 97347 Stress Test Supervsn W/Out I/R Completed Encounters Type Date Location Provider CPT E/M Dx Office Visit 11/23/2017 [facility] Georgina Mcintosh, 96163 S22.32xA 11:36a N.P. S46.002A W19.xxxA Office Visit 07/24/2017 11:19a [facility] [place] [address] J01.90 J01.90 Office Visit 05/19/2017 10:30a [facility] DELIO Whiteside [address]34 I48.0 Z95.0 I10 Office Visit 05/05/2017 2:45p [facility] Yael Ramsey M.D. 73358 I48.0 [facility] I49.5 Z95.0 I10 R53.83 R07.9 Z01.810 Office Visit 03/19/2017 8:50a [facility] [place] [address] L23.9 L57.0 Office Visit 12/19/2016 10:00a [facility] DELIO Whiteside 36582NYM Z95.0 I48.0 I47.2 Office Visit 11/13/2016 1:30p [facility] Axel Ramsey M.D. 82405 I49.5 Tom Z95.0 I48.0 R53.83 I47.2 Office Visit 06/16/2016 10:40a [facility] Yael Ramsey M.D. 39164 I48.92 Occupational Health Coordinator I48.0 Z95.0 I10 Office Visit 05/20/2016 9:30a [facility] DELIO Whiteside 00711DBB I48.0 Z95.0 Office Visit 05/13/2016 8:30a [facility] DEL[place] Wh[place]ide 58767 R06.02 I48.0 Z95.0 Office Visit 05/08/2016 11:55a [facility] Georgina Mcintosh, N.P. 77970 R06.02 Office Visit 04/03/2016 2:00p [facility] Yael Ramsey M.D. 40910 I48.0 Occupational Health Coordinator Z95.0 R53.83 I10 I47.1 Office Visit 02/19/2016 9:00a [facility] DEL[place] Wh[place]ide 665[address] I48.0 Z95.0 Office Visit 09/27/2015 10:25a [facility] Georgina Mcintosh, N.P. 87983 J30.9 J30.9 Office Visit 09/27/2015 2:45p [facility] Yael Ramsey M.D. 28074 Z95.0 Occupational Health Coordinator I49.5 I48.0 I47.2 I10 Office Visit 07/09/2015 9:00a [facility], 06832 S61.313D Analilia Lebron S61.315D Office Visit 06/25/2015 8:30a [facility], 44079 S61.313D Analilia Lebron S61.315D Office Visit 06/15/2015 9:45a [facility], 36076 S61.313A Analilia Lebron S61.315A Office Visit 03/12/2015 8:00a [facility] Axel Ramsey M.D. 65757 I47.2 Occupational Health Coordinator Z95.0 I48.0 Office Visit 02/12/2015 9:30a [facility] Yael Ramsey M.D. 56074 I48.0 Occupational Health Coordinator I10 I47.2 Z95.0 Office Visit 10/18/2014 2:30p [facility] DELIO Whiteside 11302MVF 327.23 Occupational Health Coordinator 427.1 427.31 401.1 V45.01 Office Visit 09/19/2014 8:15a [facility] [place] [address] 327.23 Services Of Occupational Health Coordinator 427.1 Office Visit 09/18/2014 1:28p [facility] Georgina Mcintosh, N.P. 54355 477.9 477.9 Office Visit 09/04/2014 8:30a [facility] Yael Ramsey M.D. 76528 327.23 Occupational Health Coordinator 427.81 V45.01 427.31 401.1 Office Visit 07/21/2014 2:00p [facility] [place] [address] 780.59 Services Of Occupational Health Coordinator 427.1 Office Visit 06/09/2014 11:00a [facility] Yael Ramsey M.D. 49622 427.1 Occupational Health Coordinator V45.01 Office Visit 02/08/2014 7:45a [facility] Yael Ramsey M.D. 25351 427.1 Occupational Health Coordinator 427.81 427.31 786.50 Office Visit 01/27/2014 11:30a [facility] Yael Ramsey M.D. 65202 427.81 Occupational Health Coordinator V45.01 427.31 401.9 427.1 Office Visit 08/08/2013 9:00a [facility] Axel Ramsey M.D. 06353 427.81 Occupational Health Coordinator V45.01 427.31 Office Visit 02/03/2013 9:45a [facility] Axel Ramsey M.D. 43033 427.32 Occupational Health Coordinator 427.81 786.05 401.9 Office Visit 08/05/2012 10:30a [facility] Yael Ramsey M.D. 63151 427.31 Occupational Health Coordinator 786.05 780.4 Office Visit 02/09/2012 1:27p [facility] Viviana Hamilton, 52787 883.1 Home N.P. Office Visit 12/18/2011 10:22a [facility] Georgina Mcintosh, N.P. 38826 238.2 Home 238.2 Office Visit 09/05/2011 2:06p [facility] Viviana Hamilton, 11283 477.0 Home N.P. Office Visit 01/31/2010 9:40a [facility] Sunil Blankenship, 92143 427.31 M.D. 424.0 Office Visit 10/18/2009 2:00p [facility] Sunil Blankenship, 13380 427.60 M.D. 427.31 427.1 401.1 Office Visit 08/23/2009 2:20p [facility] Nurse Visit 89722 427.31 401.1 Office Visit 01/26/2009 11:20a [facility] Sunil Blankenship, 31686 427.31 M.D. 401.1 794.31 Office Visit 01/27/2008 11:20a [facility] Sunil Blankenship, 60421 427.31 M.D. 401.1 Office Visit 06/02/2007 2:20p [facility] Sunil Blankenship, 43443 427.31 M.D. Office Visit 03/29/2007 3:00p [facility] Sunil Blankenship, 49769 427.31 M.D. 401.1 Office Visit 01/27/2007 9:00a [facility] Sunil Blankenship, 96516 427.31 M.D. 401.1 Office Visit 01/06/2007 1:20p [facility] Sunil Blankenship, 11340 427.31 M.D. 401.1 Plan of Care 12/31/2017 - Yael Ramsey M.D.I49.5 Sick sinus qdhossnbX03.0 Presence of cardiac pacemakerComments:Your pacemaker is working well.Follow up:PO 6 months Annual OVI48.0 Paroxysmal atrial fibrillationComments:Rare breif breakthrough NO VTach, good news.I10 Essential (primary) hypertensionComments:Well controlledRecommendations:Continue current medications for BP, rhythm and rate and blood thinner.
[2018-01-12 10:19] LABS: ABS Basophils 0.1 10^3/ul (0-0.2); ABS Eosinophils 0.2 10^3/ul (0-0.6); ABS Lymphocytes 0.8 10^3/ul (1.0-4.8); ABS Monocytes 0.7 10^3/ul (0-0.8); ABS Neutrophils 3.5 10^3/ul (1.5-7.7); ABS Nucleated RBC 0 10^3/ul; Eosinophil % 3.8 % (0-6); Hematocrit 44 % (42-52); Hemoglobin 14.8 g/dl (14.0-18.0); Mean Corpuscular HGB Conc 34 g/dl (31-36); Mean Corpuscular Hemoglobin 31 pg (27-31); Mean Corpuscular Volume 91 fL (80-94); Mean Platelet Volume 7.5 um3 (7.4-10.4); Nucleated Red Blood Cells % 0; Platelet Count 203 10^3/ul (150-450); Red Blood Count 4.82 10^6/ul (4.00-5.40); Red Cell Distribution Width 14 % (10.5-15); White Blood Count 5.3 10^3/ul (3.5-10.8)
[2018-01-12 10:28] LABS: INR 2.29 (0.77-1.02)
[2018-01-12 10:34] LABS: EGFR Non-African American 70.8 (>60)
[2018-01-12 12:01] VITALS: BP 143/97
== END 2018-01-12 12:03 | disposition home or self-care (01) ==
LOC: ED 09:02
DX: K62.5 Hemorrhage of anus and rectum (principal); I10 Essential (primary) hypertension; I48.91 Unspecified atrial fibrillation; Z79.01 Long term (current) use of anticoagulants; Z95.810 Presence of automatic (implantable) cardiac defibrillator; Z88.6 Allergy status to analgesic agent; Z87.891 Personal history of nicotine dependence
CPT/HCPCS: 36415; 80053; 85025; 85610; 85730; 86850; 86900; 86901; 99282

== ENCOUNTER → 2018-12-16 07:38 | Day surgery (SDC) | payer MEDICARE, BC ==
[~2018-12-16 07:38] MED LIST: Flumazenil* 0.1 MG/ML 5 ML MDV ONE; Lidocaine 1% INJ* 10 MG/ML 30 ML SDV ONE; Midazolam* 1 MG/ML 5 ML VIAL (5 MG) ONE; Naloxone* 0.4 MG/ML 1 ML VIAL ONE; ceFAZolin 2 GM in NS 100 ml - ONCE (Pharmacy Admix) IVPB ONE; fentaNYL* 50 MCG/ML 2 ML VIAL (100 MCG VIAL) ONE
[2018-12-16 10:58] VITALS: BP 148/80
--- NOTE | 2018-12-16 11:18 | OP ---
CC: Dr. Thanh Urban [facility] OPERATIVE REPORT: DATE OF OPERATION: 12/16/18 DATE OF : 32 SURGEON: Yael Ramsey MD ANESTHESIA: MAC. PRE-PROCEDURE DIAGNOSIS: Sick sinus syndrome with pacemaker replacement. POST-PROCEDURE DIAGNOSIS: Sick sinus syndrome with pacemaker replacement. OPERATIVE PROCEDURE: Pacemaker generator change. ESTIMATED BLOOD LOSS: Less than 2 cc. COMPLICATIONS: None. DESCRIPTION OF PROCEDURE: The indications, risks, and benefits of the procedure have been discussed in the office on the day of the procedure and he was amenable to proceeding. The existing pacer was in the left subclavian fossa. This site was prepped and draped in the usual s terile fashion. A time-out was called. The patient received 5 cc of 1% lidocaine as well as 5 mg of Versed and 37.5 mcg of fentanyl for sedation. Using a 10 blade knife, a 2.5 cm excision was made over the existing device and using Bovie and blunt dissection, it was extended to the level of the device. Using scissors a small brayden was fashioned in the fibrous sheath and the incision extended medially and laterally taking care to avoid any leads. There was some difficulty getting the existing device out due to its large size. The existing leads w ere removed from the device, examined, appeared intact. The pacing and sensing thresholds were check ed with both leads and found to be good. The pocket was copiously irrigated. The leads were attached to the new device. The device was placed in the pocket and the incision was closed with 2 layers of 2- 0 resorbable suture and one layer of 4-0 resorbable suture followed by papi and external dressi ng. FINDINGS: The explanted generator is a [employer] model [id number] serial number [id number]. The newly implanted generator is a [employer] model [id number], serial number [id number]. The existing leads are [employer] atrial lead model 1888TC/52, serial number [id number] and the existi ng ventricular lead is the [employer] model 1948/58 serial number [id number]. P-waves were sensed at 2 mV. The atrial lead impendence was 430 ohms and an atrial pacing threshold was 0.5 volts at 0.4 msec. The ventricular lead sensed R-waves at 10.5 mV with a ventricular lead impedance of 610 ohms and a ve ntricular pacing threshold of 0.5 volts at 0.4 msec. In conclusion successful pacemaker generator change. No complications. [id number]/[facility] #: [id number]
== END | disposition home or self-care (01) ==
LOC: CHICATH 07:38
PROVIDERS: ATTEND Specialist
DX: Z45.010 Encounter for checking and testing of cardiac pacemaker pulse generator [battery] (principal); I49.5 Sick sinus syndrome; I48.0 Paroxysmal atrial fibrillation; Z79.01 Long term (current) use of anticoagulants; I10 Essential (primary) hypertension; G47.33 Obstructive sleep apnea (adult) (pediatric); I47.2 Ventricular tachycardia; Z87.891 Personal history of nicotine dependence; J44.9 Chronic obstructive pulmonary disease, unspecified; E78.5 Hyperlipidemia, unspecified; R01.1 Cardiac murmur, unspecified
CPT/HCPCS: 33228; 88300; 99156; 99157; C1785; J0690; J2250; J2310; J3010